=== PATIENT | female | born 1985 | race African-American/Black ===

== ENCOUNTER 2018-08-17 13:36 | Emergency (ER) | payer OTHER ==
[2018-08-17] MEDS ORDERED: IBUPROFEN 400 MG TABLET (FP) PO ONE (14:21)
[2018-08-17 14:23] VITALS: BP 113/79; PULSE 113; BMI 31.6
--- NOTE | 2018-08-17 15:49 | PDOC ---
History of Present Illness - General Chief Complaint: Cold Symptoms Stated Complaint: COLD SYMPTOMS Time Seen by Provider: 08/17/18 14:26 History Source: Patient Exam Limitations: No Limitations - History of Present Illness Initial Comments: 08/17/18 15:14 HISTORY OF PRESENT ILLNESS: 32-year-old woman denies medical history presents emergency department for evaluation of 1 day of fevers, moist productive cough, frontal headache, body aches and sore throat. 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 Patient is unsure of influenza vaccination status. Patient has been taking Tylenol and Motrin sporadically over the past day with good relief of fevers and pain. No recent travel or sick contacts. PAST MEDICAL HISTORY: Denies past medical history SURGICAL HISTORY: Denies ALLERGIES: No known drug allergies REVIEW OF SYSTEMS General/Constitutional: +fever. Denies weakness, weight change. HEENT: Denies change in vision. Denies ear pain or discharge. +sore throat. Cardiovascular: Denies chest pain or shortness of breath. Respiratory: Moist productive cough. Denies wheezing, or hemoptysis. Gastrointestinal: Denies nausea, vomiting, diarrhea or constipation. Denies rectal bleeding. Genitourinary: Denies dysuria, frequency, or change in urination. Musculoskeletal: +myalgias. Denies neck or back pain. Skin and breasts: Denies rash or easy bruising. Neurologic: Denies headache, vertigo, loss of consciousness, or loss of sensation. Psychiatric: Denies depression or anxiety. Endocrine: Denies increased thirst. Denies abnormal weight change. Hematologic/Lymphatic: Denies anemia, easy bleeding, or history of blood clots. Allergic/Immunologic: Denies hives or skin allergy. Denies latex allergy. PHYSICAL EXAM General Appearance: Well-appearing, appropriately dressed. No apparent distress , no intoxication. HEENT: EOMI, PERRLA, normal voice, TMs retracted bilaterally. No conjunctival pallor. No photophobia, scleral icterus. Oropharynx erythematous without lesions or exudate. Cobblestoning noted in the posterior. No nasal discharge present. Neck: Supple. Trachea midline. No tenderness, rigidity, carotid bruit, stridor , or thyromegaly. Nontender anterior cervical lymphadenopathy present. Respiratory/Chest: Lungs CTAB. No shortness of breath, chest tenderness, respiratory distress, accessory muscle use. No crackles, rales, rhonchi, stridor , wheezing, dullness Cardiovascular: RRR. S1, S2. No JVD, murmur, bradycardia, tachycardia. Vascular Pulses: Dorsalis-Pedis (R): 2+, Dorsalis-Pedis (L): 2+ Gastrointestinal/Abdominal: Normal bowel sounds. Abdomen soft, non-distended. No tenderness or rebound tenderness. No organomegaly, pulsatile mass, guarding, hernia, hepatomegaly, splenomegaly. Musculoskeletal/Extremities: Normal inspection. FROM of all extremities, normal capillary refill. Pelvis Stable. No CVA tenderness. No tenderness to extremities, pedal edema, swelling, erythema or deformity. Integumentary: Appropriate color, dry, warm. 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 Fully oriented, alert. Appropriate mood/affect. Motor strength 5/5. No appreciable EOM palsy, facial droop or sensory deficit. 08/17/18 15:49 Past History - Past Medical History Allergies/Adverse Reactions: Allergies Allergy/AdvReac Type Severity Reaction Status Date / Time No Known Allergies Allergy Verified 08/17/18 14:15 COPD: No - Suicide/Smoking/Psychosocial Hx Smoking History: Current some day smoker Have you smoked in the past 12 months: No Information on smoking cessation initiated: No Hx Alcohol Use: No Drug/Substance Use Hx: No Substance Use Type: None *Physical Exam - Vital Signs Last Vital Signs Temp Pulse Resp BP Pulse Ox 101.5 F H 113 H 18 113/79 100 08/17/18 14:15 08/17/18 14:15 08/17/18 14:15 08/17/18 14:15 08/17/18 14:15 Moderate Sedation - Procedure Monitoring Vital Signs: Procedure Monitoring Vital Signs Temperature 101.5 F H 08/17/18 14:15 Pulse Rate 113 H 08/17/18 14:15 Respiratory Rate 18 08/17/18 14:15 Blood Pressure 113/79 08/17/18 14:15 O2 Sat by Pulse Oximetry (%) 100 08/17/18 14:15 ED Treatment Course - Medications Given in the ED: ED Medications Discontinued Medications Generic Name Dose Route Start Last Admin Trade Name Freq PRN Reason Stop Dose Admin Ibuprofen 800 mg 08/17/18 14:21 08/17/18 14:22 Motrin - PO 08/17/18 14:22 800 mg NOW ONE Administration Medical Decision Making - Medical Decision Making 08/17/18 15:14 A/P: 32-year-old woman with upper respiratory infection I'll send influenza testing Motrin 800 mg Reassess 08/17/18 16:00 Influenza testing is negative. I will discharge the patient home with supportive treatment for an upper respiratory nasopharyngitis I discussed the physical exam findings, ancillary test results and final diagnoses with the patient. I answered all of the patient's questions. The patient was satisfied with the care received and felt comfortable with the discharge plan and treatment plan. The patient will call their primary care physician within 24 hours to arrange follow-up and will return to the Emergency Department with any new, persistent or worsening symptoms. *DC/Admit/Observation/Transfer Diagnosis at time of Disposition: Nasopharyngitis - Discharge Dispostion Disposition: HOME Condition at time of disposition: Stable Decision to Admit order: No - Referrals Referrals: Onel Huerta MD [Primary Care Provider] - - Patient Instructions Printed Discharge Instructions: DI for Viral Upper Respiratory Infection -- Adult Additional Instructions: Rest, drink lots of fluids: Teas, water, soups, Pedialyte Saltwater gargles Steamy showers/seem to face break up mucus Avoid contact with others until fevers and cough resolved Lots of handwashing and good hygiene Continue [id number] medications for symptomatic relief Tylenol or Motrin for fever and pain Followup with private physician in one to 2 days as needed Return to emergency department for worsened symptoms, fevers, dehydration - Post Discharge Activity Forms/Work/School Notes: Back to Work
[2018-08-17 16:12] VITALS: TEMP 98.8
== END 2018-08-17 16:12 | disposition home or self-care (01) ==
LOC: JERFT 13:36
DX: J00 Acute nasopharyngitis [common cold] (principal)
CPT/HCPCS: 87804; 99281-25

== ENCOUNTER 2023-05-09 11:30 | Emergency (ER) | payer OTHER ==
[2023-05-09 11:46] VITALS: BP 135/85; PULSE 89; RESP 19; TEMP 98.3; BMI 30.2
[2023-05-09] MEDS ORDERED: BACITRACIN ZINC 15 GM TUBE TOPICAL OINTMENT TP ONE (12:08)
[2023-05-09] MEDS ORDERED: BACITRACIN ZINC 15 GM TUBE TOPICAL OINTMENT ONE (12:08)
== END 2023-05-09 13:16 | disposition home or self-care (01) ==
LOC: JERFT 11:30
DX: T24.239A Burn of second degree of unspecified lower leg, initial encounter (principal); T21.12XA Burn of first degree of abdominal wall, initial encounter; X58.XXXA Exposure to other specified factors, initial encounter; Y93.9 Activity, unspecified; Y92.9 Unspecified place or not applicable
CPT/HCPCS: 99283-25